=== PATIENT | male | born 1990 | race Caucasian/White ===

== ENCOUNTER 2023-12-23 13:14 | Outpatient (AMB) | payer BC, SELFPAY ==
--- NOTE | 2023-12-23 12:06 | A.OFFPC_ITS ---
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 Transfer from [facility]. He has a persistent cyst/mass on the right posterior neck that continues to bother him. It has grown slightly in the past few years. there is overlying redness, no skin opening or drainage He has a history of right foot pain. Remotely twisted it ROS see HPI PHYSICAL EXAM: GENERAL: Alert and oriented x 3. NAD EYES: EOMI. Anicteric. HENT: Moist mucous membranes. No scleral icterus. No cervical lymphadenopathy. LUNGS: Clear to auscultation bilaterally. CARDIOVASCULAR: Regular rate and rhythm. No murmur. No JVD. ABDOMEN: Soft, non-tender +bs EXTREMITIES: No edema. Non-tender. SKIN: Right posterior/lateral neck cyst. No overlying redness. No exudate NEUROLOGIC: No focal neurological deficits. CN II-XII grossly intact PSYCHIATRIC: Cooperative. 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 Current occupational exposures/hazards: Yes (Chemicals ,fiber, [employer]) Cognitive needs: No Hearing needs: No Vision needs: No Physical exam (Primary Care) Vital Signs: Last Vital Signs Pulse 92 12/23/23 13:24 Resp 12 12/23/23 13:24 BP 134/78 12/23/23 13:24 Pulse Ox 98 12/23/23 13:24 Oxygen Delivery Method Room Air 12/23/23 13:24 BMI result Body Mass Index 30.1 Tobacco/Smoking Status: Tobacco use Status Tobacco use date assessed 12/23/23 12/23/23 12:08 Patient Tobacco Use Status Never used Tobacco 12/23/23 13:27 e-Cigarette/Vaping Use Never Used 12/23/23 13:27 Coding Level of Care Code New Pt Prev Care 18-39yr(38268 Diagnoses Physical exam Z00.00 Dermoid cyst of neck D36.7 Assessment & Plan Assessment & Plan (1) Physical exam: Code(s): Z00.00 - Encounter for general adult medical examination without abnormal findings Category: Medical Plan: Preventive measures for age discussed (2) Dermoid cyst of neck: Code(s): D36.7 - Benign neoplasm of other specified sites Category: Medical Plan: Referral placed Orders: Orders Comprehensive Met. Panel 12/23/23 M79.671 - Pain in right foot Lipid Panel 12/23/23 M79.671 - Pain in right foot Complete Blood Count Auto Diff 12/23/23 M79.671 - Pain in right foot Referrals General Surgery Referral D36.7 - Benign neoplasm of other specified sites
[2023-12-23 13:24] VITALS: BP 134/78; PULSE 92; RESP 12; O2SAT 98; BMI 30.1
== END 2023-12-23 15:13 | disposition home or self-care (01) ==
LOC: HO.HMCFM 13:15
PROVIDERS: PCP Internal Medicine; Visit Provider Internal Medicine
DX: Z00.00 Encounter for general adult medical examination without abnormal findings (principal); D36.7 Benign neoplasm of other specified sites

== ENCOUNTER → 2023-12-23 13:14 | Outpatient (BNVA) | payer BC, SELFPAY | PROVIDERS: PCP Internal Medicine; Visit Provider Internal Medicine ==

== ENCOUNTER 2024-01-07 12:52 | Outpatient (AMB) | payer BC, SELFPAY ==
--- NOTE | 2024-01-07 13:05 | A.OFFVIS_ITS ---
Vital Signs 01/07/24 13:10 Height 6 ft Weight 222 lb BMI 30.1 BP 143/77 H Blood Pressure Location Rt brachial Position Sitting Pulse 102 H Intake Visit Reasons: Cyst~ Rt post neck Intake Note: Patient referred by pcp Dominique Patel for cyst on rt posterior neck. Present for 10yrs. Patient c/o: irritated with pressure. Denies pain, oozing. 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 He has had this several years time. His increasing in size, become more symptomatic. He would like to have removed. He has no such lesions elsewhere. Chart was reviewed and patient evaluated [facility] Family History (Updated 12/23/23 @ 13:23 by Janis Hillman CMA) Paternal Grandmother Alzheimer dementia Mother Diabetes Maternal Uncle Heart attack Lymphedema due to malignant neoplasm Maternal Grandfather Brain tumor Other FH: mental illness Substance abuse Social History (Updated 12/23/23 @ 13:20 by Janis Hillman CMA) Housing: House Patient Tobacco Use Status: Never used Tobacco e-Cigarette/Vaping Use: Never Used Second Hand Smoke Exposure: No Substance Use Type: Marijuana service: No Current occupational status: employed 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 Consent signed. All questions answered. After appropriate positioning, patient underwent 1% lidocaine and Betadine prep and a transverse by elliptical incision over the sebaceous cyst with dimensions as noted above was uneventfully excised. Specimen sent to pathology. Wound was irrigated, secured hemostasis, and closed using running subcuticular 3-0 Vicryl suture followed by Steri-Strips and sterile dressings. Patient tolerated procedure well 14985-[id number] scalp/neck/hands/feet/genitalia 2.1cm-3cm Procedure code (CPT) selection complete Office Meds lidocaine 1 %-epinephrine 1:100,000 injection solution Performing Provider: Aleksandr Pandey MD Performing Location: [facility] [place] [facility] Administered by: Aleksandr Pandey MD on 01/07/24 13:30 Dose Route Admin Location Dispensed Lot Number Expiration Date [facility] [place]NOTE 2] Sap Portal Architect 10 mL Infiltration 10 mL Assessment & Plan Assessment & Plan (1) Sebaceous cyst: Code(s): L72.3 - Sebaceous cyst Category: Surgical Plan: Patient was been given local instructions including ice to the wound periodically, may shower in 2 days, Tylenol and Motrin p.r.n. pain and patient will see me in a proximally 1 week's time or p.r.n.. All questions answered Orders: Orders AMB Excision Today L72.3 - Sebaceous cyst Medications: New lidocaine-epinephrine 1 %-1:100,000 10 mL Infiltration ONCE 30 mL 0RF L72.3 - Sebaceous cyst Coding Level of Care Code New Pt Level 5 (44989) Diagnoses Sebaceous cyst L72.3 CPT Codes Scalp/Neck/Hands/Feet/Genetalia - CPT: 86405-[id number] scalp/neck/hands/f eet/genitalia 2.1cm-3cm ([id number])
[2024-01-07 13:10] VITALS: BP 143/77; PULSE 102; BMI 30.1
== END 2024-01-07 13:35 | disposition home or self-care (01) ==
PROVIDERS: PCP Internal Medicine; Referring Provider Internal Medicine; Visit Provider Surgery
DX: L72.3 Sebaceous cyst (principal); L72.0 Epidermal cyst
CPT/HCPCS: 11423; 99204

== ENCOUNTER 2024-01-07 12:52 | Outpatient (REF) | payer BC, SELFPAY | END 2024-01-07 12:53 | disposition home or self-care (01) | LOC: HO.LNP 12:52 | PROVIDERS: PCP Internal Medicine; Referring Provider Internal Medicine; Visit Provider Surgery | DX: L72.3 Sebaceous cyst (principal) | CPT/HCPCS: 11423; 88304; 88305 ==

== ENCOUNTER 2024-01-14 13:42 | Outpatient (AMB) | payer BC, SELFPAY ==
--- NOTE | 2024-01-14 13:48 | MHC.OFFVIS ---
Intake Visit Reasons: 1 week follow up Cyst~ Rt post neck Intake Note: Patient here s/p 1wk exc cyst post neck on 01-07-2024. Reports incision healing well. Patient c/o: feels bups along incision scar line. Denies pain, oozing, discomfort. 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 No wound issues. Pathology is benign. 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 All questions answered. Coding Level of Care Code Global (92244) Diagnoses Postop check Z09
== END 2024-01-14 13:57 | disposition home or self-care (01) ==
PROVIDERS: PCP Internal Medicine; Visit Provider Surgery
DX: Z09 Encounter for follow-up examination after completed treatment for conditions other than malignant neoplasm (principal)
CPT/HCPCS: 99024

== ENCOUNTER 2024-11-23 10:52 | Outpatient (AMB) | payer BC, SELFPAY ==
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
[2024-11-23 11:16] VITALS: BP 120/74; PULSE 86; RESP 14; TEMP 37.3; O2SAT 99; BMI 29.2
--- OUTSIDE RECORDS SUMMARY | 2024-11-23 12:23 | XMS_ITS ---
Author Name [facility] Organization Unknown History of Medication Use Medication Directions Dispensed Refills Start Date End Date Stat us No medication inform ation recorded active Allergies Allergen Reaction Severity Comment Documented Date Source Statu s BENADRYL HALLUCINATIONS [facility] Problems Problem Status Onset Date Problem Type Date of Resoluti on Source Bitten by cat, initial encounter active 2023-06-12 ProblemAct [facility] Encounters Encounter Type Encounter Reason Primary Diagnosis Location Date Ambulatory [facility] 06/12/2023 Care Team Organization Name Specialty Phone Email Start Date End Da te [facility] Not Disclosed Primary Care 06/13/2023 [facility] Not Disclosed Primary Care 06/12/2023
== END 2024-11-23 12:33 | disposition home or self-care (01) ==
LOC: HO.HMCFM 10:53
PROVIDERS: PCP Internal Medicine; Visit Provider Internal Medicine
DX: M25.561 Pain in right knee (principal)

== ENCOUNTER → 2024-11-23 10:52 | Outpatient (BNVA) | payer BC, SELFPAY | PROVIDERS: PCP Internal Medicine; Visit Provider Internal Medicine | DX: M25.561 Pain in right knee (principal); Z13.31 Encounter for screening for depression | CPT/HCPCS: 96127 ==

== ENCOUNTER 2025-01-06 08:01 | Outpatient (AMB) | payer BC, SELFPAY ==
--- NOTE | 2025-01-06 08:05 | A.OFFPC_ITS ---
Vital Signs 01/06/25 08:08 Height 6 ft Weight 216 lb 4 oz BMI 29.3 BP 120/70 Blood Pressure Location Lt brachial Position Sitting Respiration 12 Pulse 78 Pulse Source Pulse Oximeter Temp 97.6 F Temp Source Oral Pulse Oximetry (%) 100 Oxygen Delivery Method Room Air Intake Visit Reasons: Physical / Dr. Patel's Pt. Intake Note: CPE Chief Writer Required: No Allergies Benadryl Allergy (Unknown, Uncoded 01/06/25 08:12) Unknown Medication List - Last [facility] No Known Home Meds Tobacco use date assessed: 01/06/25 Dental Screening Dental Screen Date: 01/06/25 Did you have a dental visit in the last 12 months?: No Did you have a dental problem in the last 6 months where you did not have access to dental care?: No Was dental information given to patient?: Yes HPI HPI Comments History of Present Illness Details History of Present Illness The patient is a 34-year-old male presenting for a complete physical exam. Knee Pain, R: - The patient has been experiencing knee pain for the past few months, which he describes as his main burden. 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 - He is being managed by [facility] and is scheduled for an MRI Vasovagal Syncope: - The patient has a history of fainting associated with blood draws and needles. - He reports that seeing his own blood c auses him to faint. - He has had episodes of syncope after l eaving the clinic, including one instance where he fainted in the parking lot. - This history has made him hesitant to get required lab work done, as he needs to schedule time off work to recover. Skin Tags: - The patient reports having skin tags i n his armpits. - He notes they have gotten slightly lar kristal with age but are not painful. - His father also has skin tags. - He recalls having one on his face that was ripped off during wrestling as a child. Past Medical History - No significant past medical history. - Vasovagal syncope, specifically relate d to phlebotomy. - History of strep throat infection in t he past year. - Allergies: Known allergy to diphenhydr amine (Benadryl). - Medications: Takes no prescribed daily medications. Past Surgical History - Excision of a sebaceous cyst, which wa s successful with no recurrence. Family History - Paternal grandmother: Alzheimer's yasmin cynthia. - Mother: Diabetes. - Maternal uncle: Myocardial infarction and lymphedema secondary to a malignant neoplasm. - Maternal grandfather: Brain tumor. - General: Reports a family history of m ental illness and substance abuse. 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 - Substance use: He currently smokes mar cmuana. - Stressors: He reports recent stress du e to the financial cost of home renovations, including a new roof and siding. Health Maintenance - Patient declined the flu shot. - Tdap immunization is up to date. - Recommended consistent use of ear prot ection at work to prevent noise-induced hearing loss. Review of Systems - Constitutional: Denies any acute paula rns. - Eyes: Denies any problems with vision. - Ears: Denies problems with hearing. - Integumentary: Reports dry skin, parti cularly in the current season; denies pain or other skin issues. - Musculoskeletal: Reports knee pain wit h movement, such as standing from a seated position. - Neurological: Reports occasional restl ess legs at night when trying to fall asleep, but it does not significantly affect his sleep quality. - Gastrointestinal: Reports normal bowel function. - Genitourinary: Reports normal urinary function; denies concerns regarding his genitalia or sexually transmitted diseases. Physical Exam General: Well developed, well nourished, in no acute distress. Appears stated age. Head: Normocephalic, atraumatic. Eyes: Pupils are equal, round and reactive to light and accommodation. Conjunctivae are clear. Scleras nonicteric bilat. Vision grossly normal. No problems or concerns with vision reported. Wears safety glasses for work. Ears: TMs clear AU, EACS WNL. No problems or concerns with hearing reported. Advised to wear ear protection at work. Nose: Patent, without discharge. Neck: No carotid bruit bilat. Supple, no adenopathy or thyromegaly. No pain or tenderness upon examination. Breast: Edu on SBE Lungs: Clear to auscultation bilaterally. No rales, rhonchi or wheeze noted. Good air flow in all grigsby. Heart: Regular rate and rhythm. No murmurs, click, rubs or gallops are noted. Abdomen: Bowel sounds present in all quadrants. The abdomen is soft, nontender, with no masses or organomegaly noted. No hernias are noted. : Deferred. Reviewed SAURABH & recommendations. No concerns with genitalia or testicles reported. Pulses: Peripheral pulses are equal and palpable bilaterally. Extremities: No clubbing, cyanosis nor edema is noted. Reports restless legs occasionally at night, but not affecting sleep. Neurologic: Gait and station normal. Cranial Nerves 2-12 intact. Motor strength grossly symmetrical and intact. No sensory loss. Balance normal. Skin: No rashes, ulcers, or lesions noted. Turgor is good. Skin color is good. Hair and nails are without abnormalities. Reports dry skin, especially after showering, attributed to work environment and home heating. Psych: Normal eye contact, affect and mood appropriate, and normal interactions. Patient is alert and appropriate to context. Reports stress related to work and personal life but no significant psychiatric concerns. Results Pending Medical Decision Making The patient is a 34-year-old male presenting for an annual physical examination. He is in good overall health with a stable weight and normal vital signs. The primary active issue is Right knee pain, which is being appropriately managed by an accounting specialist with an MRI pending. His history of vasovagal syncope with phlebotomy presents a barrier to completing recommended annual lab work. The plan addresses this with safety precautions, including advising the patient to inform the formula checker, lie down during the procedure, and arrange for transportation. Minor concerns including skin tags and restless legs were also addressed. The patient was reassured that the skin tags are benign, and conservative management options were discussed for both conditions. The patient's restless leg symptoms are mild and not bothersome enough to warrant pharmacotherapy at this time. Health maintenance is up to date, apart from the pending labs. The plan is to obtain these labs and follow up with the results via the patient portal, with a recommendation for a return visit in one year for his next physical. Plan 1. Annual Physical Examination - Annual labs will be ordered. - Advised patient on safety measures for phlebotomy due to his history of vasovagal syncope, including lying down for the draw and arranging for someone to drive him. - Recommend follow-up in one year for an annual physical with Dr. Patel. 2. Knee Pain , Right - The patient is currently under the car e of [facility] for this issue. - He has an MRI pending to further evalu ate the knee. - Will await results and recommendations from his accounting specialist. 3. Skin Tags - Reassured the patient that these are b enign and will not become cancerous. - Suggested an [id number] option o f using Selsun Blue shampoo as a body wash, which may help reduce them, though it is not a cure. 4. Restless Legs Syndrome - Symptoms are reported as mild and not bothersome enough for the patient to desire medication. - Advised on non-pharmacological interve ntions such as drinking tonic water, trying a teaspoon of yellow mustard, and ensuring adequate hydration. - Advised to follow up if symptoms worse n. Patient Instructions - Please schedule an appointment for you r lab work. It is a walk-in service, but plan it for a day when you can rest afterward. - When you go for your blood draw, yomaira noyola inform the engineering lab technician that you have a history of fainting. They can have you lie down for the procedure to ensure your safety. - It is recommended that you have someon e drive you to and from your lab appointment. - The skin tags in your armpits are harm less. If you wish, you can try using Selsun Blue shampoo as a body wash on the area, as this can sometimes help. - For occasional restless legs at night, you can try natural remedies like drinking tonic water or taking a teaspoon of yellow mustard. Also, make sure you are drinking enough water during the day. - Remember to use ear protection at work to prevent future hearing problems. - Please schedule your next annual physi lincoln exam in one year with Dr. Patel. - For any sick visits or questions, bambi bennett use the messaging feature on the patient portal for the quickest response. Consent Patient was informed and verbally consented to the use of an ambient scribe for clinic note documentation during this visit. 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 1. Little interest or pleasure in doing things: not at all 2. Feeling down, depressed, or hopeless: not at all 3. Trouble falling or staying asleep, or sleeping too much: not at all 4. Feeling tired or having little energy: not at all 5. Poor appetite or overeating: not at all 6. Feeling bad about yourself - or that you are a failure or have let yourself or your family down: not at all 7. Trouble concentrating on things, such as reading the newspaper or watching television: not at all 8. Moving or speaking so slowly that other people could have noticed. Or the opposite - being so fidgety or restless that you have been moving around a lot more than usual: not at all 9. Thoughts that you would be better off or of hurting yourself in some way: not at all Total score: 0 Depression Screening Interpretation: Negative Depression Screening Done: Yes 61036 - PHQ-9 Billing: Yes Source: Developed by Drs. Kingsley Morales, Tess Conway, Aguilar Abreu and colleagues, with an educational ernesto from [employer]. Thrive Questionnaire Date Thrive assessed: 01/06/25 I am a: Patient What is your living situation today?: I have a steady place to live Within the past 12 months, did the food you bought not last and you didn't have the money to get more?: Never true Within the past 12 months, did you worry whether your food would run out before you got money to buy more?: Never true Do you have trouble paying for medicines?: I choose not to answer this question Do you have trouble getting transportation to medical appointments?: No Do you have trouble paying your heating and electricity bill?: No Do you have trouble taking care of your child, family member or friend?: No Do you have trouble with day-to-day activities such as bathing, preparing meals, shopping, managing finances, etc.?: No Are you currently unemployed and looking for a job?: No Are you interested in more education?: No Please select the resources that you would like help with: None Currently or been in a relationship where the following occur: I choose not to answer THRIVE Score: 0 DIEGO-7 AMB Questionnaire DIEGO-7 Date DIEGO - 7 assessed: 01/06/25 Feeling nervous, anxious, or on edge: 0 = Not at all Not being able to stop or control worryin = Not at all Worrying too much about different things: 0 = Not at all Trouble relaxin = Not at all Being so restless that it is hard to sit still: 0 = Not at all Becoming easily annoyed or irritable: 0 = Not at all Feeling afraid as if something awful might happen: 0 = Not at all Total DIEGO-7 score (0-4 normal; 5-9 mild; 10-14 moderate; 15-21 severe): 0 Source: Developed by Drs. Kingsley Morales, Tess Conway, Aguilar Abreu and colleagues, with an educational ernesto from [employer]. DIEGO-7 Assessment Billing DIEGO-7 Assessment Tool: DIEGO-7 Assessment 75167 Physical exam (Primary Care) Vital Signs: Last Vital Signs Temp 97.6 F 01/06/25 08:08 Pulse 78 01/06/25 08:08 Resp 12 01/06/25 08:08 BP 120/70 01/06/25 08:08 Pulse Ox 100 01/06/25 08:08 Oxygen Delivery Method Room Air 01/06/25 08:08 BMI result Body Mass Index 29.3 Tobacco/Smoking Status: Tobacco use Status Tobacco use date assessed 01/06/25 01/06/25 08:08 Patient Tobacco Use Status Never used Tobacco 01/06/25 08:08 e-Cigarette/Vaping Use Never Used 01/06/25 08:08 PHQ-9: PHQ-9 Score PHQ-9: Total score 0 01/06/25 08:08 Depression Screening Interpretation: Negative Thrive Assessment: Date of Thrive Assessment Date Thrive assessed 01/06/25 01/06/25 08:08 Currently or been in a relationship where the following occur: I choose not to answer Coding Level of Care Code Est Pt Prev Care [id number]([id number]) Diagnoses Physical exam Z00.00 Influenza vaccination declined Z28.21 Laboratory exam ordered as part of routine general medical examination Z00.00 Additional Codes DIEGO-7 Assessment Billing - DIEGO-7 Assessment Tool: DIEGO-7 Assessment 60610 ([id number]) PHQ-9 - 76150 - PHQ-9 Billing: Yes ([id number]) Assessment & Plan Assessment & Plan (1) Physical exam: Onset Date: ~01/06/25 Code(s): Z00.00 - Encounter for general adult medical examination without abnormal findings Category: Medical (2) Influenza vaccination declined: Code(s): Z28.21 - Immunization not carried out because of patient refusal Category: Medical (3) Laboratory exam ordered as part of routine general medical examination: Code(s): Z00.00 - Encounter for general adult medical examination without abnormal findings Category: Medical Plan . Orders: Orders Lipid Panel Today Z00.00 - Encounter for general adult medical examination without abnormal findings Vitamin D 25-OH Total Today Z00.00 - Encounter for general adult medical examination without abnormal findings Complete Blood Count no Diff Today Z00.00 - Encounter for general adult medical examination without abnormal findings Comprehensive [place]. Panel Fast Today Z00.00 - Encounter for general adult medical examination without abnormal findings Hemoglobin A1c Today Z00.00 - Encounter for general adult medical examination without abnormal findings Microalbumin, Random (w Creat) Today Z00.00 - Encounter for general adult medical examination without abnormal findings TSH reflex Free T4 Today Z00.00 - Encounter for general adult medical examination without abnormal findings Vitamin B12 and Folate Today Z00.00 - Encounter for general adult medical examination without abnormal findings Patient Instructions: Patient Instructions - Please schedule an appointment for your lab work. It is a walk-in service, but plan it for a day when you can rest afterward. - When you go for your blood draw, please inform the engineering lab technician that you have a history of fainting. They can have you lie down for the procedure to ensure your safety. - It is recommended that you have someone drive you to and from your lab appointment. - The skin tags in your armpits are harmless. If you wish, you can try using Selsun Blue shampoo as a body wash on the area, as this can sometimes help. - For occasional restless legs at night, you can try natural remedies like drinking tonic water or taking a teaspoon of yellow mustard. Also, make sure you are drinking enough water during the day. - Remember to use ear protection at work to prevent future hearing problems. - Please schedule your next annual physical exam in one year with Dr. Patel. - For any sick visits or questions, please use the messaging feature on the patient portal for the quickest response. Health screenings for men You should visit your health care provider regularly, even if you feel healthy. The purpose of these visits is to: Screen for medical issues Assess your risk for future medical problems Encourage a healthy lifestyle Update vaccinations and other preventive care services Help you get to know your provider in case of an illness Information Even if you feel fine, you should still see your provider for regular checkups. These visits can help you avoid problems in the future. For example, the only way to find out if you have high blood pressure is to have it checked regularly. High blood sugar and high cholesterol level also may not have any symptoms in the early stages. Simple blood tests can check for these conditions. There are specific times when you should see your provider or receive specific health screenings. The [place] Preventive Services Task Force publishes a list of recommended screenings. Below are screening guidelines for men ages 40 to 64. BLOOD PRESSURE SCREENING Have your blood pressure checked at least once every year. Watch for blood pressure screenings in your area. Ask your provider if you can stop in to have your blood pressure checked. Ask your provider if you need your blood pressure checked more often if: You have diabetes, heart disease, kidney problems, or are overweight or have certain other health conditions You have a first-degree relative with high blood pressure You are Black Your blood pressure top number is from 120 to 129 mm Hg, or the bottom number is from 70 to 79 mm Hg If the top number is 130 mm Hg or greater or the bottom number is 80 mm Hg or greater, this is considered stage 1 hypertension. Schedule an appointment with your provider to learn how you can lower your blood pressure. Effects of age on blood pressure CHOLESTEROL SCREENING Cholesterol screening should begin at age 35 for men with no known risk factors for coronary heart disease. Repeat cholesterol screening should take place: Every 5 years for men with normal cholesterol levels More often if changes occur in lifestyle (including weight gain and diet) More often if you have diabetes, heart disease, kidney problems, or certain other conditions COLORECTAL CANCER SCREENING If you are under age 45, talk to your provider about getting screened. You may need to be screened if you have a strong family history of colon cancer or polyps. Screening may also be considered if you have risk factors such as a history of inflammatory bowel disease or polyps. If you are age 45 to 75, you should be screened for colorectal cancer. There are several screening tests available: A stool-based fecal occult blood (gFOBT) or fecal immunochemical test (FIT) every year A stool sDNA test every 1 to 3 years Flexible sigmoidoscopy every 5 years or every 10 years with stool testing FIT done every year CT colonography (virtual colonoscopy) every 5 years Colonoscopy every 10 years You may need a colonoscopy more often if you have risk factors for colorectal cancer, such as: Ulcerative colitis A personal or family history of colorectal cancer A history of growths in your colon called adenomatous polyps DENTAL EXAM Go to the dentist once or twice every year for an exam and cleaning. Your dentist will evaluate if you have a need for more frequent visits. DIABETES SCREENING All adults who do not have risk factors for diabetes should be screened starting at age 35 and repeated every 3 years. If you have other risk factors for diabetes, such as a first degree relative with diabetes, overweight or obesity, high blood pressure, prediabetes, or a history of heart disease, you may be tested more often. If you are overweight and have other risk factors, such as high blood pressure and are planning to become , screening is recommended. EYE EXAM Have an eye exam every 2 to 4 years ages 40 to 54 and every 1 to 3 years ages 55 to 64. Your provider may recommend more frequent eye exams if you have vision problems or glaucoma risk. Have an eye exam that includes an examination of your retina (back of your eye) at least every year if you have diabetes. IMMUNIZATIONS Commonly needed vaccines include: Flu shot: get one every year COVID-19 vaccine: ask your provider what is best for you Tetanus-diphtheria and acellular pertussis (Tdap) vaccine: have as one of your tetanus-diphtheria vaccines if you did not receive it as an adolescent Tetanus-diphtheria: have a booster (or Tdap) every 10 years Varicella vaccine: receive 2 doses if you never had chickenpox or the varicella vaccine and were born in 1980 or after Hepatitis B vaccine: receive 2, 3, or 4 doses, depending on your exact circumstances, if you did not receive these as a child or adolescent, until age 59 Shingles (herpes zoster) vaccine: at or after age 50 Ask your provider if you should receive other immunizations, especially if you have certain medical conditions, such as diabetes or are at increased risk for some diseases such as pneumonia. INFECTIOUS DISEASE SCREENING Screening for hepatitis C: all adults ages 18 to 79 should get a one-time test for hepatitis C. Screening for human immunodeficiency virus (HIV): all people ages 15 to 65 should get a one-time test for HIV. Depending on your lifestyle and medical history, you may need to be screened for infections such as syphilis, chlamydia, and other infections. LUNG CANCER SCREENING You should have an annual screening for lung cancer with low-dose computed tomography (LDCT) if: You are age 50 to 80 years AND You have a 20 pack-year smoking history AND You currently smoke or have quit within the past 15 years OSTEOPOROSIS SCREENING If you are age 50 to 64 and have risk factors for osteoporosis, you should discuss screening with your provider. Risk factors can include long-term steroid use, low body weight, smoking, heavy alcohol use, having a fracture after age 50, or a family history of hip fracture or osteoporosis. Osteoporosis PHYSICAL EXAM All adults should visit their provider from time to time, even if they are healthy. The purpose of these visits is to: Screen for diseases Assess risk of future medical problems Encourage a healthy lifestyle Update vaccinations and other preventive care services Maintain a relationship with a provider in case of an illness Your height, weight, and body mass index (BMI) should be checked at every exam. During your exam, your provider may ask you about: Depression and anxiety Diet and exercise Alcohol and tobacco use Safety, such as use of seat belts and smoke detectors Your medicines and risk for interactions PROSTATE CANCER SCREENING If you're 55 through 69 years old, before having the test, talk to your provider about the pros and cons of having a PSA test. Ask about: Whether screening decreases your chance of dying from prostate cancer. Whether there is any harm from prostate cancer screening, such as side effects from testing or overtreatment of cancer when discovered. Whether you have a higher risk of prostate cancer than others. If you are age 55 or younger, screening is not generally recommended. You should talk with your provider about if you have a higher risk for prostate cancer. Risk factors include: Having a family history of prostate cancer (especially a brother or father) Being If you choose to be tested, the PSA blood test is repeated over time (yearly or less often), though the best frequency is not known. Prostate examinations are no longer routinely done on men with no symptoms. Prostate cancer SKIN EXAM Your provider may check your skin for signs of skin cancer, especially if you're at high risk. People at high risk include those who have had skin cancer before, have close relatives [id number], [email or web address] have a weakened immune system. TESTICULAR EXAM The [place] Preventive Services Task Force (USPSTF) now recommends against performing testicular [email or web address]. Doing testicular self-exams has been shown to have little to no benefit.
[2025-01-06 08:08] VITALS: BP 120/70; PULSE 78; RESP 12; TEMP 36.4; O2SAT 100; BMI 29.3
== END 2025-01-06 08:33 | disposition home or self-care (01) ==
LOC: HO.HMCFM 08:02
PROVIDERS: PCP Internal Medicine; Visit Provider Nurse Practitioner Family
DX: Z00.00 Encounter for general adult medical examination without abnormal findings (principal); Z28.21 Immunization not carried out because of patient refusal

== ENCOUNTER → 2025-01-06 08:01 | Outpatient (BNVA) | payer BC, SELFPAY | PROVIDERS: PCP Internal Medicine; Visit Provider Nurse Practitioner Family | DX: Z00.00 Encounter for general adult medical examination without abnormal findings (principal); Z28.21 Immunization not carried out because of patient refusal; M25.561 Pain in right knee; L91.8 Other hypertrophic disorders of the skin; G25.81 Restless legs syndrome | CPT/HCPCS: 96127 ==